=== PATIENT | male | born 1950 | race Hispanic/Latino ===

== ENCOUNTER 2020-09-26 12:00 | Emergency (ER) | payer MEDICARE, OTHER ==
[2020-09-26 12:27] LABS: Bilirubin Small (Negative); Blood, Urine Trace (Negative); Clarity Clear (Clear); Glucose, Urine (Dipstick) Negative (Negative); Ketone, Urine 40 mg/dL (Negative); Leukocyte Small (Negative); Nitrite Negative (Negative); Protein, Urine (Dipstick) 30 mg/dL (Neg-Trace)
[2020-09-26 12:35] LABS: Bacteria/HPF None Seen HPF (None Seen); RBC/HPF 0-3 HPF (0-3); Squamous Epithelial 0-3 HPF (0-3)
[2020-09-26 13:11] LABS: Anion Gap 14 mmol/L (10-20); BUN (Urea Nitrogen) 16 mg/dL (8.4-25.7); Calc. Creatinine Clearance 0 mL/min (70-130); Calcium 8.9 mg/dL (7.8-10.44); Carbon Dioxide 25 mmol/L (23-31); Chloride 102 mmol/L (98-107); Glucose 109 mg/dL (80-115); Potassium 4.4 mmol/L (3.5-5.1)
[2020-09-26 13:24] LABS: Sodium 137 mmol/L (136-145)
[2020-09-26] MEDS ORDERED: cefTRIAXone\\ROCEPHIN 1 GM VIAL ONE (13:42)
[2020-09-26] MEDS ORDERED: Lidocaine 1% PF 5 ML VIAL ONE (13:42)
== END 2020-09-26 13:10 | disposition home or self-care (01) ==
LOC: BURERS 12:00
DX: N39.0 Urinary tract infection, site not specified (principal); I10 Essential (primary) hypertension; Z79.899 Other long term (current) drug therapy; Z79.82 Long term (current) use of aspirin
CPT/HCPCS: 36415; 80048; 81003; 81015; 87086; 96372; 99283; J0696

== ENCOUNTER 2022-12-25 20:14 | Emergency (ER) | payer MEDICARE, OTHER | END 2022-12-25 20:48 | disposition home or self-care (01) | LOC: BURERS 20:14 | DX: S00.462A Insect bite (nonvenomous) of left ear, initial encounter (principal); I10 Essential (primary) hypertension; W57.XXXA Bitten or stung by nonvenomous insect and other nonvenomous arthropods, initial encounter | CPT/HCPCS: 99282 ==